=== PATIENT | female | born 1945 | race Caucasian/White ===

== ENCOUNTER 2022-02-04 20:57 | Emergency (ER) | payer MEDICARE ==
--- NOTE | 2022-02-04 21:06 | ERPHSYRPT ---
- History of Present Illness Time Seen by Provider: 02/04/22 21:06 Source: patient, family Exam Limitations: no limitations Physician History: This is a 77-year-old white female who has a history of hypertension and has had poor balance chronically and presents with left hip pain with subcutaneous swelling in that area there is also bruising present. She is able to move the leg fairly easily. She also hit her head. She did not lose consciousness. Patient states that she was bending over to get toilet paper and lost her balance hitting her head and her left hip. Because of the swelling bruising, and tenderness, she is here for evaluation. She denies shortness of breath. She denies chest pain. She has no abdominal pain. Occurred: just prior to arrival Reason for Fall: lost balance Injuries/Pain Location: head, lower extremity (Left hip) Quality: aching Severity of Pain-Max: moderate Severity of Pain-Current: moderate Modifying Factors: Improves With: movement, other (Patient was able to stand and ambulate but it hurts to do so) Associated Symptoms (Fall): extremity injury (Left hip), trouble walking (Secondary to the pain in the left hip), No confusion, No chest pain, No seizures, No shortness of breath Allergies/Adverse Reactions: No Known Drug Allergies Allergy (Verified 02/04/22 21:26) Travel Risk - International Travel Have you traveled outside of the country in past 3 weeks: No - Coronavirus Screening Are you exhibiting any of the following symptoms?: No Close contact with a COVID-19 positive Pt in past 14-21 Days: No - Review of Systems Constitutional: No Symptoms Eyes: No Symptoms Ears, Nose, & Throat: No Symptoms Respiratory: No Symptoms Cardiac: No Symptoms Abdominal/Gastrointestinal: No Symptoms Genitourinary Symptoms: No Symptoms Musculoskeletal: Injury (Left hip) Skin: No Symptoms Neurological: No Symptoms Psychological: No Symptoms Endocrine: No Symptoms Hematologic/Lymphatic: No Symptoms Immunological/Allergic: No Symptoms All Other Systems: Reviewed and Negative - Past Medical History Pertinent Past Medical History: Yes - Past Surgical History Past Surgical History: Yes - Nursing Vital Signs Nursing Vital Signs: Initial Vital Signs Temperature 98.0 F 02/04/22 21:08 Pulse Rate 62 02/04/22 21:08 Respiratory Rate 16 02/04/22 21:08 Blood Pressure 146/60 02/04/22 21:08 O2 Sat by Pulse Oximetry 99 02/04/22 21:08 Pain Scale Pain Intensity 3 - [place] Coma Score Best Eye Response (Ranjana): (4) open spontaneously Best Verbal Response ([place]): (5) oriented Best Motor Response ([place]): (6) obeys commands Ranjana Total: 15 - Physical Exam General Appearance: no apparent distress, alert, anxiety Head Injury: no evidence of injury Eye Exam: PERRL/EOMI, eyes nml inspection ENT Exam: airway nml, nml ext.inspection, No evidence of ENT injury, No dental injury Neck Exam: supple, trachea midline, full range of motion, normal alignment, normal inspection Respiratory/Chest Exam: normal breath sounds, No chest tenderness, No respiratory distress, No ecchymosis, No crepitus Cardiovascular Exam: normal heart sounds, regular rate/rhythm Gastrointestinal Exam: soft, normal bowel sounds, No tenderness Rectal Exam: not done Back Exam: normal inspection, normal range of motion, No CVA tenderness, No vertebral tenderness Extremity Exam: normal range of motion, pelvis stable, bony point tenderness (Left hip), evidence of injury (Left hip), hip tenderness (Left with associated tenderness swelling and ecchymosis), pain with movement Neurologic Exam: alert, oriented x 3, cooperative, 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 nml as tested, normal mood/affect, sensation nml Skin Exam: normal color, warm, dry SpO2 Interpretation: normal O2 Delivery: Room Air - Course Nursing assessment & vital signs reviewed: Yes Ordered Tests: Active Orders 24 hr Category Date Time Status CERVICAL SPINE WO CONTRAST [CT] Stat Exams 02/04/22 21:10 Taken HEAD WITHOUT CONTRAST [CT] Stat Exams 02/04/22 21:10 Taken PELVIS WITHOUT CONTRAST [CT] Stat Exams 02/04/22 21:10 Taken CBC W DIFF Stat Lab 02/04/22 21:20 Completed CMP Stat Lab 02/04/22 21:20 Completed PROTIME WITH INR Stat Lab 02/04/22 21:20 Completed Lab/Rad Data: Laboratory Result Diagrams 02/04/22 21:20 02/04/22 21:20 Laboratory Results 02/04/22 02/04/22 02/04/22 Range/Units 21:20 21:20 21:20 WBC 11.2 H (4.0-10.5) K/mm3 RBC 3.98 L (4.1-5.4) M/mm3 Hgb 12.2 (12.0-16.0) gm/dl Hct 37.6 (35-47) % MCV 94.5 (78-100) fl MCH 30.7 (26-32) pg MCHC 32.4 (32-36) g/dl RDW 13.8 (11.5-14.0) % Plt Count 346 (150-450) K/mm3 MPV 10.4 (7.5-11.0) fl Gran % 74.8 H (36.0-66.0) % Eos # (Auto) 0.17 (0-0.5) Absolute Lymphs (auto) 1.73 (1.0-4.6) Absolute Monos (auto) 0.89 (0.0-1.3) Lymphocytes % 15.5 L (24.0-44.0) % Monocytes % 8.0 (0.0-12.0) % Eosinophils % 1.5 (0.00-5.0) % Basophils % 0.2 (0.0-0.4) % Absolute Granulocytes 8.38 H (1.4-6.9) Basophils # 0.02 (0-0.4) PT 11.9 (9.4-12.5) SECONDS INR 1.01 (0.8-3.0) Sodium 136 L (137-145) mmol/L Potassium 3.9 (3.5-5.1) mmol/L Chloride 103 (98-107) mmol/L Carbon Dioxide 22 (22-30) mmol/L Anion Gap 14.9 (5-15) MEQ/L BUN 22 H (7-17) mg/dL Creatinine 0.90 (0.52-1.04) mg/dL Estimated GFR > 60.0 ML/MIN Glucose 115 H (74-106) mg/dL Calcium 9.2 (8.4-10.2) mg/dL Total Bilirubin 0.60 (0.2-1.3) mg/dL AST 23 (14-36) U/L ALT 11 (0-35) U/L Alkaline Phosphatase 143 H (38-126) U/L Serum Total Protein 6.7 (6.3-8.2) g/dL Albumin 4.0 (3.5-5.0) g/dL - Progress Progress: improved, pain not gone completely, re-examined Progress Note: 02/04/22 22:30 CAT scan of pelvis shows a large left hip soft tissue swelling/hematoma. There is degenerative joint disease present. There is no fracture or dislocation per radiologist CAT scan of the cervical spine is negative for any fracture or subluxation. CAT scan of the head without contrast shows moderate left parietal scalp hematoma with no underlying fracture or intracranial bleed. Counseled pt/family regarding: lab results, diagnosis, need for follow-up, rad results - Departure Departure Disposition: Home Clinical Impression: Fall with injury, Hematoma and contusion, Hip hematoma, left Condition: Stable Critical Care Time: No Additional Instructions: Ice pack to tender swollen areas 3 times a day for the next 48 hours. Take your medication as prescribed. Follow-up with your primary care physician for further management. Prescriptions: Hydrocodone/APAP 5/325 [[place] 5/325 mg] 1 each PO Q12H PRN PRN #6 tablet MDD 2 PRN Reason: Pain
[2022-02-04 21:31] LABS: Absolute Neutrophil Ct (ANC) 8.38 (1.4-6.9); Basophil (Absolute #) 0.02 (0-0.4); Eosinophil % 1.5 % (0.00-5.0); Eosinophil (Absolute #) 0.17 (0-0.5); Hematocrit 37.6 % (35-47); Hemoglobin 12.2 gm/dl (12.0-16.0); Lymphocyte (Absolute #) 1.73 (1.0-4.6); Lymphocytes % 15.5 % (24.0-44.0); Mean Cell Volume 94.5 fl (78-100); Mean Corpuscular Hemoglobin 30.7 pg (26-32); Mean Corpuscular Hgb Concent. 32.4 g/dl (32-36); Mean Platelet Volume 10.4 fl (7.5-11.0); Monocyte (Absolute #) 0.89 (0.0-1.3); Neutrophil % 74.8 % (36.0-66.0); Platelet Count 346 K/mm3 (150-450); Red Blood Count 3.98 M/mm3 (4.1-5.4); Red Cell Distribution Width 13.8 % (11.5-14.0); White Blood Count 11.2 K/mm3 (4.0-10.5)
[2022-02-04 21:33] LABS: INR 1.01 (0.8-3.0); PROTIME 11.9 SECONDS (9.4-12.5)
[2022-02-04 21:37] LABS: ALKALINE PHOSPHATASE 143 U/L (38-126); ANION GAP 14.9 MEQ/L (5-15); BLOOD UREA NITROGEN 22 mg/dL (7-17); CHLORIDE 103 mmol/L (98-107); Calcium 9.2 mg/dL (8.4-10.2); Carbon Dioxide 22 mmol/L (22-30); EST GLOMERULAR FILTRATION RATE > 60.0 ML/MIN; Glucose 115 mg/dL (74-106); Potassium 3.9 mmol/L (3.5-5.1); SGOT/AST 23 U/L (14-36); SGPT/ALT 11 U/L (0-35); SODIUM 136 mmol/L (137-145); Total Protein 6.7 g/dL (6.3-8.2)
[2022-02-04] MEDS ORDERED: NORCO 5/325 MG PO ONE (22:33)
[2022-02-04] MEDS ORDERED: NORCO 5/325 MG ONE (22:41)
[2022-02-04 22:47] VITALS: BP 106/61; PULSE 54; O2SAT 97
--- NOTE | 2022-02-05 08:42 | XRAY ---
Indication: Head injury following fall. Multiple contiguous axial images obtained through the head without contrast. Comparison: None Moderate sized left posterior parietal scalp hematoma. Brain demonstrates age-appropriate global atrophy. No acute intracranial hemorrhage, abnormal extra-axial fluid collection, or mass effect. Fourth ventricle is midline without hydrocephalus. Lindsay-white matter differentiation preserved. Bony calvarium intact. Visualized paranasal sinuses and mastoid air cells are clear. Impression: Left parietal scalp hematoma. No underlying fracture or acute intracranial abnormalities.
--- NOTE | 2022-02-05 08:44 | XRAY ---
Indication: Pain following fall. Multiple contiguous axial images obtained through the cervical spine. Sagittal and coronal reformatted images obtained. Comparison: None Osseous structures demineralized consistent with patient's age. Axial images negative for acute fracture, suspicious bony lesions, or spinal canal stenosis. There is mild/moderate C3-T1 degenerative anterior/posterior endplate spurring. Also mild atlantoaxial degenerative changes and multilevel bilateral degenerative facet hypertrophy. Sagittal and coronal reformatted images demonstrates cervical lordotic reversal centered at C4, positional versus paraspinal spasm. 2-3 mm anterolisthesis of C3 on C4. No acute compression fracture, subluxation, or jumped facet. Normal appearing craniocervical junction. Visualized noncontrasted soft tissues demonstrates moderate bilateral carotid calcifications. Lung apices demonstrates biapical pleural parenchymal fibrosis/scarring and moderate arteriosclerotic calcifications. Impression: 1. Cervical lordotic reversal, positional versus paraspinal spasm. Negative for acute fracture. 2. Osteopenia, multilevel degenerative spondylosis, minimal grade 1 C3 spondylolisthesis, and scattered arteriosclerotic disease.
--- NOTE | 2022-02-05 08:48 | XRAY ---
Indication: Left hip pain and swelling following fall. Multiple contiguous axial images obtained through the pelvis with special attention to the osseous structures. Sagittal and coronal reformatted images obtained. Comparison: None. Osseous structures demineralized consistent with patient's age. Incompletely visualized large lateral left hip soft tissue swelling/hematoma. No acute fracture, dislocation, or suspicious bony lesions. Both hips demonstrates mild/moderate degenerative arthropathy. Visualized lumbar spine demonstrates L3-L4 fusion with intact bilateral pedicle screws. Visualized noncontrasted soft tissues demonstrates moderate scattered vascular calcifications and sigmoid diverticulosis. Impression: 1. Left hip soft tissue swelling/hematoma. Negative for acute fracture/dislocation. 2. Incidental osteopenia, bilateral hip degenerative arthropathy, L4-L5 fusion, arteriosclerotic disease, and sigmoid diverticulosis.
== END 2022-02-04 22:59 | disposition home or self-care (01) ==
LOC: ED 20:57
DX: S70.02XA Contusion of left hip, initial encounter (principal); S00.03XA Contusion of scalp, initial encounter; W18.39XA Other fall on same level, initial encounter; M25.552 Pain in left hip; R26.2 Difficulty in walking, not elsewhere classified; I10 Essential (primary) hypertension; Z79.891 Long term (current) use of opiate analgesic
CPT/HCPCS: 36415; 70450; 72125; 72192; 80053; 85025; 85610; 99283; A9270-GY

== ENCOUNTER 2022-06-28 22:27 | Emergency (ER) | payer MEDICARE ==
--- NOTE | 2022-06-28 22:31 | ERPHSYRPT ---
- History of Present Illness Time Seen by Provider: 06/28/22 22:31 Source: patient, EMS Exam Limitations: no limitations Physician History: This is a 77-year-old white female resident at [facility] who was brought into the emergency department by ambulance because she slipped on her hardwood floor. She did not trip she just slipped on the smooth slippery surface and fell backwards hitting the back of her head. She denies loss of consciousness. She denies any medical history. Patient was refusing to come to the emergency department however the EMS did convince her to come in for evaluation. She is not on any anticoagulation therapy. She does take an aspirin a day. Occurred: just prior to arrival Reason for Fall: slipped Injuries/Pain Location: head Loss of Consciousness: no loss of consciousness Quality: aching (Localized to the back of her head) Severity of Pain-Max: mild Severity of Pain-Current: mild Associated Symptoms (Fall): denies symptoms Allergies/Adverse Reactions: guaifenesin [From Mucinex] Allergy (Verified 06/28/22 22:44) Hx Tetanus, Diphtheria Vaccination/Date Given: Yes Hx Influenza Vaccination/Date Given: No Hx Pneumococcal Vaccination/Date Given: No Travel Risk - International Travel Have you traveled outside of the country in past 3 weeks: No - Coronavirus Screening Are you exhibiting any of the following symptoms?: No Close contact with a COVID-19 positive Pt in past 14-21 Days: No - Vaccine Status Have you recieved a Covid-19 vaccination: Yes [employer]: Unknown - Vaccination Dates Dates if Unknown: [place] - Review of Systems Constitutional: No Symptoms Eyes: No Symptoms Ears, Nose, & Throat: No Symptoms Respiratory: No Symptoms Cardiac: No Symptoms Abdominal/Gastrointestinal: No Symptoms Genitourinary Symptoms: No Symptoms Musculoskeletal: No Symptoms Skin: Other (Contusion occipital region of her scalp. There is abrasion associated. No obvious laceration.) Neurological: No Symptoms Psychological: No Symptoms Endocrine: No Symptoms Hematologic/Lymphatic: No Symptoms Immunological/Allergic: No Symptoms All Other Systems: Reviewed and Negative - Past Medical History Pertinent Past Medical History: Yes Other Medical History: pt denies medical history - Past Surgical History Past Surgical History: Yes Other Surgical History: back surgery 2018 - Social History Smoking Status: Former smoker Exposure to second hand smoke: No Drug Use: none Patient Lives Alone: No ([facility]) - Nursing Vital Signs Nursing Vital Signs: Initial Vital Signs Temperature 97.9 F 06/28/22 22:31 Pulse Rate 67 06/28/22 22:31 Respiratory Rate 18 06/28/22 22:31 Blood Pressure 155/81 06/28/22 22:31 O2 Sat by Pulse Oximetry 98 06/28/22 22:31 Pain Scale Pain Intensity 2 - [place] Coma Score Best Eye Response (Ranjana): (4) open spontaneously Best Verbal Response ([place]): (5) oriented Best Motor Response (Ranjana): (6) obeys commands [place] Total: 15 - Physical Exam General Appearance: no apparent distress, alert, anxiety Head Injury: contusions (With abrasion occipital scalp), tenderness Eye Exam: PERRL/EOMI, eyes nml inspection ENT Exam: airway nml, nml ext.inspection, No evidence of ENT injury Neck Exam: supple, trachea midline, full range of motion, normal alignment, normal inspection Respiratory/Chest Exam: chest tenderness, No respiratory distress Gastrointestinal Exam: No tenderness Rectal Exam: not done Back Exam: normal inspection, normal range of motion, No CVA tenderness, No vertebral tenderness Extremity Exam: normal inspection, normal range of motion, capillary refill <3 sec, pelvis stable Neurologic Exam: alert, oriented x 3, cooperative, sorting supervisor II-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 No skull fractures. No intracranial bleed. 06/28/22 23:47 CAT scan of the cervical spine without contrast shows no acute fracture or subluxation. Counseled pt/family regarding: diagnosis, need for follow-up, rad results - Departure Departure Disposition: Home Clinical Impression: Fall with injury, Hematoma and contusion Condition: Stable Critical Care Time: No Referrals: CLAUDIA GILES MD [Family Provider] - Follow up/PCP as directed Additional Instructions: Keep your scalp clean daily with soap and water. May use ice pack to the site 2-3 times a day for the next 48 hours. May use Tylenol and ibuprofen for pain control. Follow-up with your prescribing provider for further evaluation and management.
[2022-06-28 22:43] VITALS: O2SAT 98
[2022-06-28 23:34] VITALS: BP 148/65; PULSE 68
--- NOTE | 2022-06-29 07:09 | XRAY ---
Indication: Posterior head injury following fall. Contusion. Multiple contiguous axial images obtained through the head without contrast. Comparison: February 04, 2022 Again age-appropriate global atrophy and mild periventricular degenerative micro-ischemia bilaterally. No acute intracranial hemorrhage, abnormal extra-axial fluid collection, or mass effect. Fourth ventricle is midline without hydrocephalus. New right posterior scalp hematoma near the vertex. Bony calvarium intact. Visualized paranasal sinuses and mastoid air cells are clear. Impression: New right posterior scalp hematoma without underlying fracture. Continued nonacute senile brain. Comment: Preliminary interpretation made by [facility]. No critical discrepancy.
--- NOTE | 2022-06-29 07:13 | XRAY ---
Indication: Pain following fall. Multiple contiguous axial images obtained through the cervical spine. Sagittal and coronal reformatted images obtained. Comparison: February 04, 2022 Again osteopenia. Axial images negative for acute fracture, suspicious bony lesions, or spinal canal stenosis. There remains mild/moderate C3-T1 degenerative anterior/posterior endplate spurring and mild multilevel bilateral degenerative facet hypertrophy. Sagittal and coronal reformatted images again demonstrates lordotic reversal, 2-3 mm anterolisthesis of C3 on C4, and C4-C7 disc space loss. No acute compression fracture, subluxation, or jumped facet. Normal appearing craniocervical junction. Visualized noncontrast soft tissues again demonstrates moderate bilateral carotid calcifications and biapical pleural parenchymal fibrosis/scarring. Impression: 1. Continued negative acute fracture/subluxation. 2. Again chronic findings including osteopenia, multilevel degenerative spondylosis, minimal grade 1 C3 spondylolisthesis, and arteriosclerotic disease. Comment: Preliminary interpretation made by C. No critical discrepancy.
== END 2022-06-29 00:05 | disposition home or self-care (01) ==
LOC: ED 22:27
DX: S00.03XA Contusion of scalp, initial encounter (principal); W01.0XXA Fall on same level from slipping, tripping and stumbling without subsequent striking against object, initial encounter; R51.9 Headache, unspecified
CPT/HCPCS: 70450; 72125; 99282